=== PATIENT | female | born 1980 | race Hispanic/Latino ===

== ENCOUNTER → 2016-10-19 | Day surgery (SDC) | payer OTHER ==
--- NOTE | 2016-10-17 11:58 | History & Physical Pre-Op ---
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 The patient has undergone an extended course of conservative care, including shoe gear and activity modification, rest, immobilization and courses of NSAIDs. None of this is yielded her any significant relief. The patient presents today for preoperative surgical consultation. Allergies/Medications Allergies: Coded Allergies: No Known Allergies (10/14/16) Past History Surgical History Pertinent Surgical History: appendectomy, , tubal ligation Review of Systems Review of Systems: Unremarkable except for that noted in history of present illness Exam & Diagnostic Data Physical Exam: Lungs clear bilaterally. Heart sounds rate and rhythm regular. Lower extremity physical exam demonstrates intact pedal pulses bilaterally. Pulses dorsalis pedis and posterior tibial arteries are palpable bilaterally. Patient without any sensory motor deficits. Deep tendon reflexes grossly intact. Patient noted to have cemented pain with palpation to the right fourth and fifth proximal interphalangeal joints. Digits noted to be reducible. Assessment/Plan Assessment/Plan: Painful hammertoes right foot. A lengthy discussion reviewing both surgical and conservative options was held the patient at bedside and the patient elects to go forward with surgery despite the risks. As Ranked By This Provider Problem List: 1. Other hammer toe(s) (acquired), right foot Attending MD Review Statement Attending Statement Attending MD Statement: examined this patient
[~2016-10-19] VITALS: Ht 160 cm; Wt 77.1 kg
--- NOTE | 2016-10-19 14:01 | Operative Report ---
Operative/Inv Procedure Report Surgery Date: 10/19/16 Name of Procedure: 1 arthroplasty fourth toe right foot 2 arthroplasty fifth toe right foot Pre-Operative Diagnosis: 1 hammertoe fourth toe right foot 2 hammertoe fifth toe right foot Post-Operative Diagnosis: The same Estimated Blood Loss: scant Surgeon/Handy Worker: AMMY POSEY DPM Anesthesia: moderate sedation, block Operative/Procedure Note Note: After obtaining informed consent the patient was brought to the operating room and placed on the operating table in the supine position. The patient was then securely fastened to the operating table utilizing safety belt. After administration of IV sedation, 10 mL of 0.5% Marcaine plain was infiltrated about the patient's left ankle. A well-padded ankle tourniquet was placed about the patient's right lower extremity. 2 g of Ancef were delivered intravenously times one dose. Right foot and ankle within scrubbed prepped and draped in usual aseptic manner. Right lower extremity was elevated to examine to limb, which point the ankle tourniquet was inflated 250 mmHg. Fourth and fifth toes where 2 transversely oriented semielliptical incisions overlying the proximal interphalangeal joints were incised with a 15 blade. It was deepened subtenons tissues and the ellipses of skin were freed and passed from the operative field. Transverse tenotomies were then performed exposing the heads of the fourth and fifth digits. These were then resected with a sagittal bone saw. The extensor tendon was then reapproximated 4-0 Vicryl and the skin edges reapproximated with 4-0 nylon. The incisions were dressed with Xeroform 4 x 4's Kerlix and an Jose wrap. The patient was noted to tolerate both procedure and anesthesia well and the patient was transported from the operating room to recovery with vital signs stable and vascular status intact all digits right foot.
== END ==
LOC: STS 02:11
DX: M20.41 Other hammer toe(s) (acquired), right foot (principal); J45.909 Unspecified asthma, uncomplicated
CPT/HCPCS: 88304; 88305; J0690; J1885; J2001; J2250